=== PATIENT | female | born 1955 | race Caucasian/White ===

== ENCOUNTER 2020-06-06 06:18 | Emergency (ER) | payer BC, MEDICARE ==
[~2020-06-06] VITALS: Ht 154.9 cm; Wt 41.4 kg
[~2020-06-06 06:18] MED LIST: BIOT5CAP2 PO; CALCIUM LIQUID; CHOL100046 PO; CLA PO; FISH/FLAX/BORAGE PO; IBUP-1984 PO; IRON18TA PO; METHYL FOLATE PO; VITC500T PO; [UNRECOGNIZED DRUG - OTHER] PO
[2020-06-06 07:48] LABS: BASOPHILS # (AUTO) 0.1 X10'3 (0-0.2); BASOPHILS % (AUTO) 1.7 % (0-1); EOSINOPHILS # (AUTO) 0.8 X10'3 (0-0.9); EOSINOPHILS % (AUTO) 9.9 % (0-6); HEMATOCRIT 38.2 % (35.0-45.0); HEMOGLOBIN 12.7 g/dl (12.0-16.0); LYMPHOCYTES # (AUTO) 0.9 X10'3 (1.1-4.8); LYMPHOCYTES % (AUTO) 11.8 % (21-51); MEAN CORPUSCULAR HEMOGLOBIN 30.2 PG (27.0-31.0); MEAN CORPUSCULAR HGB CONC 33.3 g/dL (33.0-36.5); MEAN CORPUSCULAR VOLUME 90.7 FL (78-98); MEAN PLATELET VOLUME 6.9 FL (7.4-10.4); MONOCYTES # (AUTO) 0.6 X10'3 (0-0.9); NEUTROPHILS # (AUTO) 5.2 X10'3 (1.8-7.7); NEUTROPHILS % (AUTO) 68.6 % (42-75); PLATELET COUNT 257 X10'3 (140-440); RED BLOOD COUNT 4.21 X10'6 (4.20-5.60); RED CELL DISTRIBUTION WIDTH 15.2 % (11.5-14.5); WHITE BLOOD COUNT 7.6 X10'3 (4.5-11.0)
[2020-06-06 07:49] LABS: ALANINE AMINOTRANSFERASE 35 U/L (12-78); ALBUMIN 3.3 G/DL (3.4-5.0); ALBUMIN/GLOBULIN RATIO 0.9 (1.1-1.5); ALKALINE PHOSPHATASE 52 IU/L (46-116); ANION GAP 9 (8-16); ASPARTATE AMINO TRANSFERASE 37 U/L (10-37); BILIRUBIN,TOTAL 0.3 MG/DL (0.1-1.0); BLOOD UREA NITROGEN 14 MG/DL (7-18); BUN/CREATININE RATIO 16.1 (6.6-38.0); CHLORIDE 105 MMOL/L (99-107); CREATININE 0.87 MG/DL (0.40-0.90); GLUCOSE 81 MG/DL (70-104); POTASSIUM 4.2 MMOL/L (3.5-5.1); SODIUM 142 MMOL/L (135-145); TOTAL CARBON DIOXIDE 28.3 MMOL/L (24-32); TOTAL PROTEIN 6.9 G/DL (6.4-8.2); eGFR 65 ML/MIN
[2020-06-06] MEDS ORDERED: ALBU8HFA PO ×2 (08:01→08:06)
[2020-06-06 08:39] VITALS: BP 136/63
== END 2020-06-06 08:36 | disposition home or self-care (01) ==
LOC: ER 06:18
DX: J40 Bronchitis, not specified as acute or chronic (principal); R06.02 Shortness of breath; R06.2 Wheezing; R09.89 Other specified symptoms and signs involving the circulatory and respiratory systems; R94.31 Abnormal electrocardiogram [ECG] [EKG]; Z87.01 Personal history of pneumonia (recurrent); Z98.890 Other specified postprocedural states; Z79.899 Other long term (current) drug therapy
CPT/HCPCS: 36415; 71046; 80053; 84484; 85025; 93005; 99285

== ENCOUNTER 2024-10-15 13:47 | Outpatient (CLI) | payer MEDICARE, OTHER ==
[~2024-10-15] VITALS: Ht 154.9 cm; Wt 40.4 kg
[~2024-10-15 13:47] MED LIST changes: +ALBU8HFA PO; +BIOT5CAP PO; -BIOT5CAP2 PO
[2024-10-15 14:50] LABS: MEAN PLATELET VOLUME 6.9 FL (7.4-10.4); PRE OP HEMATOCRIT 37.6 % (35.0-45.0); PRE OP HEMOGLOBIN 12.4 g/dL (12.0-16.0); PRE OP PLATELET COUNT 289 X10'3 (140-440); PRE OP WHITE BLOOD COUNT 11.8 10'3 (4.8-10.8); RED CELL DISTRIBUTION WIDTH 16.9 % (11.5-14.5)
--- NOTE | 2024-10-15 14:51 | ELECTROCARDIOGRAPH REPORT ---
[facility] Test Date: 2024-10-15 Test Time: 14:49:20 Pat Name: KEEGAN SANFORD Department: [facility]-PRE-OP Patient ID: [id number] Room: Gender: F Bioinformatics Specialist: : [id number] Requested By: RHYS ABDI Order Number: [id number] Reading MD: Dr. SELVIN Chawla Measurements Intervals [place] Rate: 48 P: 74 [place]: 179 QRS: 71 QRSD: 77 T: 69 QT: 490 QTc: 438 Interpretive Statements Sinus bradycardia Minimal ST elevation, inferior leads Electronically Signed On 10-15-2024 19:18:[address] SELVIN Chawla Please click the below link to view image of tracing.
[2024-10-15] MEDS ORDERED: PRED20TA PO (15:02)
[2024-10-15] MEDS ORDERED: ALPR0.255 PO (15:02)
[2024-10-15] MEDS ORDERED: FLUT1BLS3 PO (15:02)
[2024-10-15] MEDS ORDERED: MELO-102 PO (15:02)
[2024-10-15] MEDS ORDERED: ALBU8HFA INH (15:02)
[2024-10-15] MEDS ORDERED: CEFD300C17 PO (15:02)
[2024-10-15] MEDS ORDERED: FISH OIL PO (15:02)
[2024-10-15 15:03] LABS: CREATININE 0.92 MG/DL (0.40-0.90); PRE OP ALT 30 U/L (30-65); PRE OP ANION GAP 8 (8-16); PRE OP AST 33 U/L (10-37); PRE OP BILIRUB, TOTAL 0.6 MG/DL (0.0-1.0); PRE OP GLUCOSE 116 MG/DL (70-104); PRE OP POTASSIUM 4.4 MMOL/L (3.4-5.1); PRE OP SODIUM 133 MMOL/L (135-145); TOTAL CARBON DIOXIDE 23.8 MMOL/L (24-32); eGFR 60 ML/MIN
[2024-10-17] MEDS ORDERED: albuterol 2.5 MG/3 ML nebule NEB ONE (05:30)
[2024-10-17] MEDS ORDERED: ringers solution, lacted 1,000 ML IV SCH (05:30)
== END 2024-10-15 23:59 | disposition home or self-care (01) ==
LOC: LAB 13:47 → EDSTATUS 10-17 10:30 → MERGE 10-17 10:30 → EDBD 10-17 11:00
PROVIDERS: ATTEND Internal Medicine Critical Care Medicine
DX: R05.9 Cough, unspecified (principal); Z53.8 Procedure and treatment not carried out for other reasons; J45.909 Unspecified asthma, uncomplicated; I10 Essential (primary) hypertension; Z79.899 Other long term (current) drug therapy
CPT/HCPCS: 36415; 80053; 85025; 93005; J7120